=== PATIENT | female | born 1945 | race Caucasian/White ===

== ENCOUNTER 2017-11-02 11:08 | Emergency (ER) | payer MEDICARE, SELFPAY ==
[2017-11-02] VITALS (10 sets, daily range): BP systolic 133–194; BP diastolic 58–116; PULSE 65–94; RESP 12–24; TEMP 36.9; O2SAT 91–98; BMI 32.4
--- NOTE | 2017-11-02 11:17 | CT_ITS ---
STUDY: CT BRAIN WITHOUT CONTRAST REASON FOR EXAM: Female, 72 years old. Solid onset of headaches and dizziness. Hypertension. RADIATION DOSAGE (If Supplied By Facility): CTDIvol = ( 44.99 ) mGy, DLP = ( 779.24 ) mGycm TECHNIQUE: Transaxial CT imaging of the brain was performed without administration of intravenous contrast material. Individualized dose optimization techniques were used for this CT. COMPARISON: None. FINDINGS: Normal soft tissue structures. Normal calvarium. There is mild cerebral atrophy with widening of the extra-axial spaces and ventricular dilatation. There are areas of decreased attenuation within the white matter tracts of the supratentorial brain, consistent with microvascular disease changes. Normal basal ganglia and thalami. Normal brainstem. Normal cerebellum. There is no intracranial hemorrhage. There are no findings of an acute ischemic infarction. Normal visualized paranasal sinuses. CT/Brain/Head without Contrast IMPRESSION: Chronic involutional changes of the brain. Electronically Signed: Minor Christianson MD at 11:44 EST Tel [phone], Service support ,
--- NOTE | 2017-11-02 11:18 | EKG12_ITS ---
Test Reason : REPEAT Blood Pressure : / mmHG Vent. Rate : 070 BPM Atrial Rate : 070 BPM P-R Int : 144 ms QRS Dur : 078 ms QT Int : 428 ms P-R-T Axes : 055 048 043 degrees QTc Int : 462 ms Normal sinus rhythm Normal ECG Confirmed by MICKY BACH, GARRETT ([id number]), technical editor TAMIE CRAMER ([id number]) on 11/04/2017 1:10:49 PM Referred By: SEAN Confirmed By:GARRETT WEEKS MD
--- NOTE | 2017-11-02 11:20 | NURSING ---
NO OLD EKGS
--- NOTE | 2017-11-02 11:22 | ED.VISSUMM ---
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 Patient said this morning she had some dizziness. Room spinning. Denies any problem with her balance. Denies any numbness or tingling. Denies any problem moving her arms and legs. Later this morning she developed a headache at the top of her head. She states is moderate to severe. She is not on any blood thinners other than aspirin. She denies any falls or head trauma. She denies any prior intracranial bleeds. Physical Examination: Older female blood pressure is elevated at 194/116. Otherwise vital signs are stable afebrile. Pulse ox 98% on room air no hypoxia. HEENT exam pupils round reactive to light. Extra motions are intact. Normal speech. She may have a very minor left corner of her mouth droop. Neck nontender. Lungs clear to auscultation bilaterally. Heart regular rhythm no murmur rate in 90s. Abdomen soft and nontender. Neurologically she is moving all 4 extremities. She has bilateral equal and symmetrical 5 out of 5 surveillance supervisor strength. She has bilateral equal symmetrical dorsi plantar flexion. She has normal sensation. She may have a very mild left facial droop. Involving the corner of her mouth. She can open and close her eyes. Her symptoms seem to get worse with movement of her head this may be secondary to vertigo. Test Results: CT of the brain without contrast shows no acute abnormality. Read by the radiologist reviewed by me. No bleed. ABC normal. BMP unremarkable. Glucose of 90. Normal creatinine and gap. PT/INR normal. Troponin normal. EKG sinus rhythm rate 80 with no acute abnormality. Chest x-ray normal cardiac silhouette and mediastinum read both by myself and the radiologist. Emergency Department Course and Treatment: Repeat exam the patient was feeling better initially after IV Ativan because we are out of IV Valium. And then also p.o. Antivert. She did develop chest pain after some morphine for her headache. That may be secondary to reflux. He does not appear to be cardiac. On repeat exam at 1545 she is doing well. Her neurologic exam is normal. Her daughter is a nurse here in emergency department and is comfortable and wants to take her home. They were warned to be very careful with her up and around is the medication she was given and also the vertigo she is a very significant fall risk. Treatment Plan: Antivert for dizziness secondary to vertigo. Call follow-up with primary care physician. Return to the ER if feeling worse. Disposition: Discharge Impression: Acute dizziness secondary to vertigo Acute cephalgia Atypical chest pain This note was generated with [employer] dictation software. It may contain incorrect words, spelling, and punctuation that were not noted in review of the chart prior to signing ED Disposition - Plan for ED Patient: Disposition: Home or Assisted Living Chief Complaint: Neuro S/Sx Instructions: ED Vertigo Unspecified Prescriptions: Meclizine HCl [Antivert] 25 mg PO 4X/DAY PRN PRN #20 tab PRN Reason: Dizziness Referrals: Pipo Goldman [Primary Care Provider] - As soon as possible Additional Instructions: Return to ER feeling worse. Follow up with your doctor to ensure that you are getting better. Your CAT scan, both EKGs, and all your blood work and chest x-ray were all normal. The dizziness seems to be secondary to vertigo. The medication Antivert to be used to treat that.
[2017-11-02 11:29] LABS: Absolute Lymphocyte Count 2.36 X10^3/ul (0.83-4.51); Absolute Neutrophil Count 4.1 X10^3/uL (2.0-7.7); Basophil# 0.02 X10^3/uL; Basophil% 0.3 % (0-1); Eosinophils% 1.4 % (0-5); Hematocrit 44.5 % (37-47); Hemoglobin 15.1 g/dl (12.0-15.0); Lymphocyte # 2.36 X10^3/ul (4.0); Lymphocyte % 33.3 % (19-41); Mean Corp Hgb Conc 33.9 g/gl (32-36); Mean Corpuscular Hgb 29.6 pg (27.0-32.0); Mean Corpuscular Volume 87.3 fL (81-99); Mean Platelet Vol. 8.6 fl (6.2-12.0); Monocyte# 0.55 X10^3/uL; Monocyte% 7.8 % (0-10); Neutrophil # 4.05 X10^3/uL (2.7-7.7); Neutrophil % 57.1 % (47-70); Platelet Count 274 K/mm3 (150-450); RBC Distribution Width CV 12.9 % (11.6-14.6); RBC Distribution Width SD 41.4 fl (35.1-43.9); White Blood Count 7.1 K/mm3 (4.4-11.0)
[2017-11-02 11:30] LABS: POSITIVE COUNT NO; POSITIVE DIFFERENTIAL NO; POSITIVE MORPHOLOGY NO
[2017-11-02 11:36] LABS: Bedside Glucose 92 mg/dL (70-110)
[2017-11-02] MEDS: LORazepam 2 MG/ML Syringe IV (11:36)
[2017-11-02 11:41] LABS: Prothrombin Time (Protime)PT. 12.4 SECONDS (11.7-14.9)
[2017-11-02 11:45] LABS: Anion Gap 8 (5-15); BUN 15 mg/dL (7-18); BUN/Creat Ratio 17.6 RATIO (10-20); Calcium,Total 8.6 mg/dL (8.5-10.1); Chloride 103 mmol/L (98-107); Creatinine, Serum 0.85 mg/dL (0.55-1.02); EST Glomerular Filtration Rate 70 mL/min (>60); Est Glom Filt Rate - Afr Amer 84 mL/min (>60); Estimated Creatinine Clearance 46.62 ml/min; Glucose 90 mg/dL (74-106); Potassium 4.3 mmol/L (3.5-5.1); Sodium Level 139 mmol/L (136-145)
[2017-11-02] MEDS: Ondansetron 4 MG/2 ML Vial IV (12:50)
[2017-11-02] MEDS: Meclizine 12.5 MG Tablet 25 MG PO (13:00)
[2017-11-02] MEDS: Famotidine 20 MG Tablet 40 MG PO (13:36)
--- NOTE | 2017-11-02 13:45 | RAD_ITS ---
STUDY: X-RAY CHEST REASON FOR EXAM: Female, 72 years old. Chest pain. TECHNIQUE: Single AP portable view of the chest. COMPARISON: None. FINDINGS: EKG electrodes are seen. Scattered calcified granulomas. No acute abnormality is seen. There is no demonstrated pleural abnormality. Normal size heart. Normal mediastinum and vazquez. Normal visualized pulmonary arteries. There is atherosclerotic calcification of the aortic arch with tortuosity. There are diffuse degenerative changes of the visualized thoracic spine. Normal visualized ribs, clavicles, and shoulders. There is no demonstrated abnormality of the visualized soft tissue structures of the upper abdomen. RAD/Chest 1 View (Portable) IMPRESSION: No acute abnormality is seen. Electronically Signed: Minor Christianson MD at 14:33 EST Tel [phone], Service support ,
--- NOTE | 2017-11-02 14:36 | EKG12_ITS ---
Test Reason : NEURO S/SX Blood Pressure : / mmHG Vent. Rate : 080 BPM Atrial Rate : 080 BPM P-R Int : 134 ms QRS Dur : 074 ms QT Int : 414 ms P-R-T Axes : 051 048 049 degrees QTc Int : 477 ms Normal sinus rhythm with sinus arrhythmia Normal ECG Confirmed by MICKY BACH, GARRETT ([id number]), city editor TAMIE CRAMER ([id number]) on 11/04/2017 1:11:03 PM Referred By: SEAN Confirmed By:GARRETT WEEKS MD
--- NOTE | 2017-11-02 15:40 | ED.DEP ---
ED Disposition - Plan for ED Patient: Disposition: Home or Assisted Living Chief Complaint: Neuro S/Sx Instructions: ED Vertigo Unspecified Prescriptions: Meclizine HCl [Antivert] 25 mg PO 4X/DAY PRN PRN #20 tab PRN Reason: Dizziness Referrals: Pipo Goldman [Primary Care Provider] - As soon as possible Additional Instructions: Return to ER feeling worse. Follow up with your doctor to ensure that you are getting better. Your CAT scan, both EKGs, and all your blood work and chest x-ray were all normal. The dizziness seems to be secondary to vertigo. The medication Antivert to be used to treat that.
== END 2017-11-02 16:10 | disposition home or self-care (01) ==
PROVIDERS: Emergency Provider Emergency Medicine
DX: R42 Dizziness and giddiness (principal); R51 Headache; R07.89 Other chest pain; Z86.73 Personal history of transient ischemic attack (TIA), and cerebral infarction without residual deficits
CPT/HCPCS: 70450; 71045; 80048; 82962; 84484; 85025; 85610; 93005; 96374; 96375; 96376; 99284; A4216; J2405

== ENCOUNTER 2020-10-29 13:47 | Outpatient (RCR) | payer MEDICARE, SELFPAY ==
[2017-11-02 11:10] VITALS: BMI 32.4
== END 2020-10-29 23:59 ==
LOC: IMMUN 13:47
PROVIDERS: Referring Provider Family Medicine; Visit Provider Family Medicine
DX: Z23 Encounter for immunization (principal)
CPT/HCPCS: 0011A; 0012A; 91301

== ENCOUNTER 2021-08-07 11:33 | Observation (INO) | payer MEDICARE, SELFPAY ==
[2021-08-07] VITALS (8 sets, daily range): BP systolic 132–188; BP diastolic 7–100; PULSE 65–77; RESP 14–20; TEMP 36.6–36.7; O2SAT 98–100; BMI 35.8; BMI 32.5
--- NOTE | 2021-08-07 11:43 | ED.RN ---
PAIN AND SENSITIVITY TO BILAT LEGS ABOE THE KNEES. PT STATES THAT THE BLANKETS ON HER LEGS CAUSE HER PAIN. THERE IS BRUISING TO BOTH LEGS ABOVE THE KNEES.
--- NOTE | 2021-08-07 12:23 | ED.VIS.FALL ---
HPI HPI - Fall History of Present Illness Chief Complaint: Lower Extremity Injury Informant: patient and spouse/S.O. Occured/Mechanism Occurred: Today Mechanism/Context: Yes same level fall and Yes trip Pain/Injury Location: both thighs/knees Current Severity: Moderate Maximum Severity: Severe Worsened by: any movement Relieved by: remaining still Associated Symptoms Associated Symptoms: Positive for Loss of function and Inability to ambulate; Negative for Parasthesias and Weakness Narrative Narrative: Patient states she was moving garbage can outside to rake leaves behind it, and in doing so she tripped and fell into the garbage can, injuring both of her thighs, unable to stand or walk subsequently. She denies any other injury. No numbness. No prodromal symptoms, she tripped. Takes aspirin but not anticoagulated. She denies hitting her head or having any pain in her neck or back. [facility] Medical History Stroke/cerebrovascular accident Home Medications aspirin 243 mg PO DAILY@0800 11/02/17 [History Last Taken 11/01/17] Allergy/AdvReac Type Severity Reaction Status Date / Time No Known Allergies Allergy Verified 08/07/21 11:36 Social History Smoking Status: Former smoker ROS ROS ED Constitutional Constitutional ED: Denies chills or fever(s) Eyes Eyes: Denies change in vision or diplopia ENT ENT ED: Denies rhinorrhea or sore throat Cardiovascular Cardiovascular: Denies chest pain or palpitations Respiratory/Chest Respiratory/Chest: Denies cough or dyspnea Gastrointestinal Gastrointestinal: Denies abdominal pain, diarrhea, nausea or vomiting Genitourinary Genitourinary ED: Denies dysuria or hematuria Musculoskeletal Musculoskeletal: Reports extremity pain; Denies back pain or neck pain Integumentary Denies abscess or rash Neurologic Neurologic: Denies headache(s), paresthesias or weakness Psychiatric Psychiatric: Denies anxiety or suicidal thoughts EXAM Physical Exam Const Vital Signs: 08/07/21 11:36 08/07/21 13:44 Temperature 98.1 F Temperature Source Temporal Pulse Rate 77 65 Respiratory Rate 14 20 H Blood Pressure 188/7 H 156/53 H Blood Pressure Mean 67 87 Pulse Ox 99 99 Oxygen Delivery Method Room Air Room Air Positive well nourished and well developed General Appearance ED: well developed and NAD HEENT Reports moist mucous membranes normocephalic and atraumatic Eyes PERRL and EOMs intact bilaterally Neck full ROM and supple Resp normal respiratory effort and clear to auscultation bilaterally Cardio regular rate, regular rhythm and peripheral pulses 2+ throughout GI non-tender and non-distended Auscultation: normoactive bowel sounds Palpation: soft Back/Spine no CVA tenderness General Back: other FROM Extremity normal to inspection Extremity Narrative: Extremely tender distal left femur, both thighs, and extremely limited range of motion both lower extremities due to extreme pain in both thighs with ranging any joint except for the ankle or toes which she is able to do okay. No deformities. Ecchymoses to both medial thighs around the mid-distal thirds. Skin intact. General Extremety ED: Yes tenderness; Negative for edema or pulses abnormal General Extremity: Negative for edema or pulses abnormal Neuro oriented x3, CN's II-XII intact bilaterally and no sensory deficits noted Sensorium / Orientation: awake and alert Motor Exam: strength 5/5 throughout Skin no rashes or lesions noted and no wounds Skin Narrative: Mild ecchymosis both medial thighs, skin intact. MDM MDM MDM Narrative Medical decision making narrative: Pelvis stable to AP compression patient does not complain of groin or hip pain, but since exam is very limited of the lower extremities other than as noted above, patient was given morphine first followed by radiography of both femurs and the pelvis. All of these x-rays are unremarkable showing no signs of an acute fracture. I am less suspicious about the hips based on where she is having all of her pain and tenderness. Therefore after analgesics and the patient being more comfortable, we sat her up and were able to get her to the side of the bed with a significant amount of assistance, she was not able to stand, bear weight, or even get close to trying to walk due to pain. She has a hematoma on her left anterolateral thigh that is causing her the most pain and is very tender. Very limited range of motion of the left knee and hip due to this but with gentle internal/external rotation, she does not have any groin/hip joint pain. The right lower extremity is more benign, less tender, she has better range of motion but still limited there, the knee and the hip do not hurt with ranging those just increases pain in the thigh. As long she is remaining still, she is comfortable. I do not think she is going to be safe to be discharged home, since we can even get her on her feet. Will discuss with hospitalist for inpatient observation and PT/OT evaluations. After discussion also added a CPK level to her basic labs. Of note, it has been 4 hours since patient has had any narcotic pain medication, but when she falls asleep she desats to 86% on room air so we placed her on 2 L of oxygen. When awake, she is keenly alert, and discusses the fact that she snores at night and I suspect she may have undiagnosed sleep apnea. Lab Data Attestation: I reviewed the patient's lab results. Labs: Laboratory Results - last 24 hr 08/07/21 08/07/21 15:30 15:30 WBC 11.3 H RBC 4.86 Hgb 14.2 Hct 42.0 MCV 86.4 MCH 29.2 MCHC 33.8 RDW Std Deviation 40.0 RDW Coeff of Brigid 12.8 Plt Count 282 MPV 8.4 Immature Gran % (Auto) 0.400 Neut % (Auto) 81.3 H Lymph % (Auto) 10.0 L [place] % (Auto) 7.6 Eos % (Auto) 0.3 Baso % (Auto) 0.4 Absolute Neuts (auto) 9.2 H Absolute Lymphs (auto) 1.13 Nucleated RBC % 0 Sodium 140 Potassium 3.8 Chloride 108 H Carbon Dioxide 26.0 Anion Gap 6 BUN 15 Creatinine 0.84 Estim Creat Clear Calc 44.36 Est GFR (MDRD) Af Amer 85 Est GFR (MDRD) Non-Af 70 BUN/Creatinine Ratio 17.9 Glucose 91 Calcium 8.9 Radiography Diagnostic Testing: Clinical Impression(s) from Imaging Studies Femur X-Ray 08/07/21 13:06 IMPRESSION: Osteopenia with osteoarthritic changes. No acute finding. Electronically Signed: Broderick Bermudez MD at 13:34 EST , Service support , Pelvis X-Ray 08/07/21 13:06 IMPRESSION: Osteopenia with osteoarthritic changes as described. No acute finding. Electronically Signed: Broderick Bermudez MD at 13:35 EST , Service support , Femur X-Ray 08/07/21 13:20 IMPRESSION: Osteopenia with osteoarthritic changes. No acute osseous abnormality. Electronically Signed: Broderick Bermudez MD at 13:37 EST , Service support , Discharge Plan Dx/Rx/DC Orders Clinical Impression: Contusion of left thigh, Contusion of right thigh, Fall from slip, trip, or stumble, Inability to walk Disposition Disposition: Acute Care [facility]
[2021-08-07] MEDS: Ondansetron 4 MG/2 ML Vial IV ×2 (12:31→18:33)
[2021-08-07] MEDS: Morphine 4 MG/ML Syringe IV ×3 (12:31→18:33)
--- NOTE | 2021-08-07 13:06 | RAD_ITS ---
STUDY: X-RAY - RIGHT FEMUR REASON FOR STUDY: Female, 76 years old. Injury. Pain. TECHNIQUE: 4 view(s) of the femur. COMPARISON: None. FINDINGS: Osteopenia. Moderate arthrosis of the left hip. Mild tricompartmental arthrosis of the knee. Small superior patellar spur. Normal soft tissues. RAD/Femur Min 2 Views IMPRESSION: Osteopenia with osteoarthritic changes. No acute finding. Electronically Signed: Broderick Bermudez MD at 13:34 EST , Service support ,
--- NOTE | 2021-08-07 13:06 | RAD_ITS ---
STUDY: X-RAY - PELVIS REASON FOR EXAM: Female, 76 years old. Injury. Pain. TECHNIQUE: One view of the pelvis was obtained. COMPARISON: None. FINDINGS: There is a non-specific bowel gas pattern. Normal visualized soft tissue structures. Osteopenia. Mild arthrosis of both sacroiliac joints and the symphysis pubis. Moderate arthrosis of both hips, right greater than left. RAD/Pelvis 1 or 2 Views IMPRESSION: Osteopenia with osteoarthritic changes as described. No acute finding. Electronically Signed: Broderick Bermudez MD at 13:35 EST , Service support ,
--- NOTE | 2021-08-07 13:20 | RAD_ITS ---
STUDY: X-RAY - LEFT FEMUR REASON FOR STUDY: Female, 76 years old. Injury. Pain. TECHNIQUE: 4 view(s) of the femur. COMPARISON: None. FINDINGS: Osteopenia. Moderate arthrosis of the right hip and mild tricompartmental arthrosis of the knee. Small superior patellar spur. Normal soft tissues. RAD/Femur Min 2 Views IMPRESSION: Osteopenia with osteoarthritic changes. No acute osseous abnormality. Electronically Signed: Broderick Bermudez MD at 13:37 EST , Service support ,
--- NOTE | 2021-08-07 13:45 | ED.RN ---
PT UNABLE TO VOID. PER PT REQUEST PT CATHED FOR 850 CC OF URINE. PT TOLERATED WELL
--- NOTE | 2021-08-07 14:23 | ED.RN ---
PT ROOM AIR PULSE OX IS 79 % WITH A GOOD WAVE FORM. PT SLEEPING. PT WOKEN UP AND ENCOURAGED TO BREATH DEEP. PT PLACED ON OXYGEN AT 3 LITERS.. 96 %
[2021-08-07 15:49] LABS: Absolute Lymphocyte Count 1.13 X10^3/uL (0.83-4.51); Absolute Neutrophil Count 9.2 X10^3/uL (2.0-7.7); Basophil# 0.04 X10^3/uL; Basophil% 0.4 % (0-1); Eosinophil# 0.03 X10^3/uL; Eosinophils% 0.3 % (0-5); Hemoglobin 14.2 g/dL (12.0-15.0); Lymphocyte # 1.13 X10^3/ul (0.83-4.51); Mean Corp Hgb Conc 33.8 g/dL (32-36); Mean Corpuscular Hgb 29.2 pg (27.0-32.0); Mean Corpuscular Volume 86.4 fL (81-99); Mean Platelet Vol. 8.4 fl (6.2-12.0); Monocyte# 0.86 X10^3/uL; Monocyte% 7.6 % (0-10); NRBC Flagged by Analyzer 0 % (0-5); Neutrophil % 81.3 % (47-70); Platelet Count 282 K/mm3 (150-450); RBC Distribution Width CV 12.8 % (11.6-14.6); Red Blood Count 4.86 M/mm3 (4.2-5.4); White Blood Count 11.3 K/mm3 (4.4-11.0)
[2021-08-07 16:03] LABS: Anion Gap 6 (5-15); BUN 15 mg/dL (7-18); BUN/Creat Ratio 17.9 RATIO (10-20); Calcium,Total 8.9 mg/dL (8.5-10.1); Chloride 108 mmol/L (98-107); Creatinine, Serum 0.84 mg/dL (0.55-1.02); EST Glomerular Filtration Rate 70 mL/min (>60); Est Glom Filt Rate - Afr Amer 85 mL/min (>60); Estimated Creatinine Clearance 44.36 ml/min; Glucose 91 mg/dL (74-106); Potassium 3.8 mmol/L (3.5-5.1); Sodium Level 140 mmol/L (136-145)
--- NOTE | 2021-08-07 16:12 | ED.RN ---
PT FALLS ASLEEP. PULSE OX AGAIN NOTED TO DECLINE. PT SATURATION AT 87 WITH A GOOD WAVE FORM. PT PLACED BACK ON O2 AT 3 LITERS. PULSE OX INCREASING
--- NOTE | 2021-08-07 16:36 | PCM.HP.STD ---
Documented by User: CHRISTOPHER Mills 08/07/21 16:50 HPI - General General Date of Admission: 08/07/21 Date of Service: 08/07/21 Chief Complaint: Fall, left leg pain HPI Narrative CHRISSIE CARTER, is a 76 F who presents with complaints of left leg pain following a fall. Patient states that she was raking leaves and tripped and fell into the garbage can. Patient states that her left leg is much more painful than the right. Patient states that she tripped, denied dizziness, lightheadedness patient's only medical history is history of a stroke approximately 14 years ago for which she has no lingering deficits. Patient reports that she takes aspirin daily but otherwise is on no medications. [facility] Medical History (Updated 08/07/21 @ 16:47 by CHRISTOPHER Mills) Stroke/cerebrovascular accident Home Medications aspirin 243 mg PO DAILY@0800 11/02/17 [History Last Taken 11/01/17] Allergy/AdvReac Type Severity Reaction Status Date / Time No Known Allergies Allergy Verified 08/07/21 11:36 Family History (Updated 08/07/21 @ 17:[address] Poppy Corona MD) Mother Cancer Mother w/ Lymphoma history. Surgical History (Updated 08/07/21 @ 16:39 by CHRISTOPHER Mills) History of back surgery History of cholecystectomy History of tonsillectomy Social History (Updated 08/07/21 @ 17:[address] Poppy Corona MD) household members: spouse Smoking Status: Former smoker how long ago did patient quit smokin years alcohol intake: current alcohol intake frequency: a few times a month Alcohol type: beer substance use type: does not use ROS Constitutional Constitutional: Denies anorexia, chills, fatigue, fever(s), malaise or weakness Cardiovascular Cardiovascular: Denies chest pain, edema, palpitations or syncope Respiratory/Chest Respiratory/Chest: Denies cough, shortness of breath at rest, shortness of breath with exertion or wheezing Gastrointestinal Gastrointestinal: Denies abdominal pain, constipation, diarrhea, nausea or vomiting Genitourinary Genitourinary: Denies dysuria Musculoskeletal Musculoskeletal: Reports difficulty walking and extremity pain; Denies back pain, joint pain, joint stiffness or joint swelling Integumentary Integumentary: Denies dry skin Neurologic Neurologic: Denies abnormal gait, abnormal speech, confusion or dizziness Psychiatric Psychiatric: Denies anxiety or depression Endocrine Endocrinology: Denies change in body appearance Hematologic/Lymphatic Hematologic/Lymphatic: Denies anemia or easy bleeding Vital Signs Vital Signs Vital Signs: 08/07/21 11:36 08/07/21 13:44 Temperature 98.1 F Temperature Source Temporal Pulse Rate 77 65 Respiratory Rate 14 20 H Blood Pressure 188/7 H 156/53 H Blood Pressure Mean 67 87 Pulse Ox 99 99 Oxygen Delivery Method Room Air Room Air Weight Weight: 195 lb 15.855 oz Body Mass Index (BMI) 35.8 Physical Exam Const alert, oriented x3 and no apparent distress General Appearance: cooperative HEENT normocephalic and head/scalp atraumatic Eyes conjunctivae normal and no scleral icterus Neck no lymphadenopathy and supple General: trachea midline Resp normal respiratory effort, normal air movement and clear to auscultation bilaterally Cardio regular rate, regular rhythm, S1 normal heart sound, S2 normal heart sound and peripheral pulses 2+ throughout GI normal to inspection, nondistended, normoactive bowel sounds, soft to palpation and non-tender Extremity normal capillary refill Peripheral Pulses: Yes pulses 2+ throughout Right Lower Extremity: upper leg Positive for inspection (Ecchymotic through the mid thigh from anterior thigh extending in to posterior lateral thigh with noted abrasion to mid thigh), palpation (Tender from just above the knee joint up to the hip) and neurovascular exam (Intact) Skin General Skin Exam: turgor normal and ecchymosis Lesions: no lesions Rashes: no rashes Trauma: abrasion Neuro oriented x3, no focal motor deficits and no sensory deficits noted Neuro Narrative: Difficulty ambulating due to left leg pain Motor Exam: general weakness Psych thought process normal, cooperative and affect normal Appearance: appropriate Results Lab / Micro Data Result Diagrams: 08/07/21 15:30 08/07/21 15:30 Labs: Laboratory Results - last 24 hr 08/07/21 15:30: WBC 11.3 H, RBC 4.86, Hgb 14.2, Hct 42.0, MCV 86.4, MCH 29.2, MCHC 33.8, RDW Std Deviation 40.0, RDW Coeff of Brigid 12.8, Plt Count 282, MPV 8.4, Immature Gran % (Auto) 0.400, Neut % (Auto) 81.3 H, Lymph % (Auto) 10.0 L, [place] % (Auto) 7.6, Eos % (Auto) 0.3, Baso % (Auto) 0.4, Absolute Neuts (auto) 9.2 H, Absolute Lymphs (auto) 1.13, Nucleated RBC % 0 08/07/21 15:30: Sodium 140, Potassium 3.8, Chloride 108 H, Carbon Dioxide 26.0, Anion Gap 6, BUN 15, Creatinine 0.84, Estim Creat Clear Calc 44.36, Est GFR (MDRD) Af Amer 85, Est GFR (MDRD) Non-Af 70, BUN/Creatinine Ratio 17.9, Glucose 91, Calcium 8.9 Radiology Impression Femur X-Ray 08/07/21 13:06 IMPRESSION: Osteopenia with osteoarthritic changes. No acute finding. Electronically Signed: Broderick Bermudez MD at 13:34 EST , Service support , Pelvis X-Ray 08/07/21 13:06 IMPRESSION: Osteopenia with osteoarthritic changes as described. No acute finding. Electronically Signed: Broderick Bermudez MD at 13:35 EST , Service support , Femur X-Ray 08/07/21 13:20 IMPRESSION: Osteopenia with osteoarthritic changes. No acute osseous abnormality. Electronically Signed: Broderick Bermudez MD at 13:37 EST , Service support , Assessment & Plan Assessment/Plan (1) Fall from slip, trip, or stumble: QUALIFIERS: Encounter type: initial encounter Qualified Code(s): W01.0XXA - Fall on same level from slipping, tripping and stumbling without subsequent striking against object, initial encounter (2) Contusion of left thigh: QUALIFIERS: Encounter type: initial encounter Qualified Code(s): S70.12XA - Contusion of left thigh, initial encounter (3) Inability to walk: PLAN: 1.Contusion of left thigh secondary to fall -Admit to [facility] -PT and OT consulted -Apply ice to area 20 minutes on 20 minutes off -CPK pending -CBC and BMP ordered for a.m. -No acute fracture to femur or hip and pelvis x-ray -Pain medication regimen ordered, patient received IV morphine in ER 2. Inability to walk -Secondary to #1 3. History of CVA -Continue aspirin DVT prophylaxis-not indicated, observation status This patient was seen by CHRISTOPHER Mills under the supervision of Dr. Corona. Documented by User: Dr. Poppy Corona MD 08/07/21 17:20 HPI - General General Date of Admission: 08/07/21 [facility] Medical History (Updated 08/07/21 @ 16:47 by CHRISTOPHER Mills) Stroke/cerebrovascular accident Home Medications aspirin 243 mg PO DAILY@0800 11/02/17 [History Last Taken 11/01/17] Allergy/AdvReac Type Severity Reaction Status Date / Time No Known Allergies Allergy Verified 08/07/21 11:36 Family History (Updated 08/07/21 @ 17:[address] Poppy Corona MD) Mother Cancer Mother w/ Lymphoma history. other (Denies any marked paternal family history including HD, DM, CA.) Surgical History (Updated 08/07/21 @ 16:39 by CHRISTOPHER Mills) History of back surgery History of cholecystectomy History of tonsillectomy Social History (Updated 08/07/21 @ 17:[address] Poppy Corona MD) household members: spouse Smoking Status: Former smoker how long ago did patient quit smokin years alcohol intake: current alcohol intake frequency: a few times a month Alcohol type: beer substance use type: does not use Results Lab / Micro Data Result Diagrams: 08/07/21 15:30 08/07/21 15:30
[2021-08-07 18:47] LABS: CPK Total, Creatine Kinase 140 U/L (26-192)
--- NOTE | 2021-08-07 19:07 | PCS.PANDOC ---
PANDEMIC DOCUMENTATION INITIATED: Date: 04/27/2021 Time: 190
[2021-08-08] MEDS: Acetaminophen 325 MG Tablet 650 MG PO ×2 (00:51→07:22)
[2021-08-08 02:07] VITALS: BP 125/72; PULSE 67; RESP 18; TEMP 36.8; O2SAT 98
[2021-08-08] MEDS: oxyCODONE 5 MG Tablet PO (06:12)
--- NOTE | 2021-08-08 06:17 | PCM.PN.HOSP ---
Objective Data Objective Data Vital Signs: Vital Signs Temp Pulse Resp BP Pulse Ox 98.2 F 67 18 125/72 H 98 08/08/21 02:07 08/08/21 02:07 08/08/21 02:07 08/08/21 02:07 08/08/21 02:07 Oxygen Flow Rate (L/min) 2 Oxygen Delivery Method Room Air Weight: 176 lb 9.444 oz Body Mass Index (BMI) 32.5 Intake & Output: Intake and Output for Last 24 Hours 08/06/21 08/07/21 08/08/21 23:59 23:59 23:59 Intake Total 500 / 500 Output Total 700 / 700 Balance -200 / -200 Lab / Micro Data Result Diagrams: 08/07/21 15:30 08/07/21 15:30 Labs: Laboratory Results - last 24 hr 08/07/21 15:30: WBC 11.3 H, RBC 4.86, Hgb 14.2, Hct 42.0, MCV 86.4, MCH 29.2, MCHC 33.8, RDW Std Deviation 40.0, RDW Coeff of Brigid 12.8, Plt Count 282, MPV 8.4, Immature Gran % (Auto) 0.400, Neut % (Auto) 81.3 H, Lymph % (Auto) 10.0 L, [place] % (Auto) 7.6, Eos % (Auto) 0.3, Baso % (Auto) 0.4, Absolute Neuts (auto) 9.2 H, Absolute Lymphs (auto) 1.13, Nucleated RBC % 0 08/07/21 15:30: Sodium 140, Potassium 3.8, Chloride 108 H, Carbon Dioxide 26.0, Anion Gap 6, BUN 15, Creatinine 0.84, Estim Creat Clear Calc 44.36, Est GFR (MDRD) Af Amer 85, Est GFR (MDRD) Non-Af 70, BUN/Creatinine Ratio 17.9, Glucose 91, Calcium 8.9 08/07/21 15:30: Total Creatine Kinase 140 Radiography Diagnostic Testing: Radiology Impression Femur X-Ray 08/07/21 13:06 IMPRESSION: Osteopenia with osteoarthritic changes. No acute finding. Electronically Signed: Broderick Bermudez MD at 13:34 EST , Service support , Pelvis X-Ray 08/07/21 13:06 IMPRESSION: Osteopenia with osteoarthritic changes as described. No acute finding. Electronically Signed: Broderick Bermudez MD at 13:35 EST , Service support , Femur X-Ray 08/07/21 13:20 IMPRESSION: Osteopenia with osteoarthritic changes. No acute osseous abnormality. Electronically Signed: Broderick Bermudez MD at 13:37 EST , Service support ,
[2021-08-08 07:33] LABS: Absolute Lymphocyte Count 1.38 X10^3/uL (0.83-4.51); Absolute Neutrophil Count 3.7 X10^3/uL (2.0-7.7); Basophil# 0.03 X10^3/uL; Basophil% 0.5 % (0-1); Eosinophil# 0.11 X10^3/uL; Eosinophils% 1.9 % (0-5); Hematocrit 38.3 % (37-47); Hemoglobin 12.8 g/dL (12.0-15.0); Lymphocyte # 1.38 X10^3/ul (0.83-4.51); Lymphocyte % 23.8 % (19-41); Mean Corp Hgb Conc 33.4 g/dL (32-36); Mean Corpuscular Hgb 29.5 pg (27.0-32.0); Mean Corpuscular Volume 88.2 fL (81-99); Mean Platelet Vol. 8.6 fl (6.2-12.0); Monocyte# 0.59 X10^3/uL; Monocyte% 10.2 % (0-10); NRBC Flagged by Analyzer 0 % (0-5); Neutrophil # 3.67 X10^3/uL (2.7-7.7); Neutrophil % 63.1 % (47-70); Platelet Count 268 K/mm3 (150-450); RBC Distribution Width CV 12.9 % (11.6-14.6); RBC Distribution Width SD 41.9 fl (35.1-43.9); Red Blood Count 4.34 M/mm3 (4.2-5.4); White Blood Count 5.8 K/mm3 (4.4-11.0)
[2021-08-08] MEDS: Aspirin 81 MG TAB.CHEW PO (07:44)
[2021-08-08 07:50] VITALS: BP 123/53; PULSE 64; RESP 16; TEMP 36.6; O2SAT 98
[2021-08-08 07:58] VITALS: O2SAT 96
[2021-08-08 08:16] LABS: Anion Gap 5 (5-15); BUN 13 mg/dL (7-18); BUN/Creat Ratio 14.9 RATIO (10-20); CPK Total, Creatine Kinase 145 U/L (26-192); Calcium,Total 8.3 mg/dL (8.5-10.1); Chloride 110 mmol/L (98-107); Creatinine, Serum 0.87 mg/dL (0.55-1.02); EST Glomerular Filtration Rate 67 mL/min (>60); Est Glom Filt Rate - Afr Amer 81 mL/min (>60); Estimated Creatinine Clearance 40.86 ml/min; Glucose 86 mg/dL (74-106); Potassium 3.8 mmol/L (3.5-5.1); Sodium Level 140 mmol/L (136-145)
[2021-08-08 09:33] VITALS: BP 112/74; BP 112/75; BP 124/76; PULSE 61; PULSE 63; PULSE 91
[2021-08-08 11:35] VITALS: BP 135/65; PULSE 59; RESP 16; TEMP 36.6; O2SAT 99
--- NOTE | 2021-08-08 13:37 | PCM.DC ---
Discharge Instructions Diet Discharge Diet: No restrictions Activity Discharge Activity: Return to Normal Activity and - (Avoid aggressive activities or those that would post a recurrent fall risk until improved.) Dressing / Incision Call your doctor if you observe: Uncontrolled pain Follow Up Care Test Results: Test results from this visit will be discussed in further detail at your follow-up appointment, if applicable. Discharge Plan Admission Admit Date/Time: 08/07/21 16:32 Primary Reason for Your Visit: Acute BL thigh contusion, L thigh hematoma s/p injury Attending Provider: Amna Coleman Primary Care Provider: Emma Ordonez Primary Instructions Additional Instructions / Restrictions: Currently you are taking aspirin 243 mg p.o. daily. We do recommend you consider transition to 81 mg daily only as this elevated dose may cause deleterious side effects including GI bleeding. Upon initial ED presentation your blood pressure was elevated however this normalized and was likely secondary to pain. Please follow-up with your primary care physician to assure that blood pressures remain appropriate and no medications are necessitated. Discharge Orders/Prescriptions Prescriptions: Continued aspirin 81 MG tablet,chewable 243 mg PO DAILY@0800 RF: 0 Referrals / Follow Up: Care Physician,Emma Primary [Primary Care Provider] - Disposition Disposition (needs filled in before D/C Order can be placed): Home, Self Care
--- NOTE | 2021-08-08 13:38 | DS.PCM_ITS ---
Providers Date of Admission: 08/07/21 Primary Care Physician: No Primary Care Phys Reason For Visit: LEFT LEG PAIN Diagnosis Discharge Diagnosis (1) Fall from slip, trip, or stumble: Status: Acute Code(s): W01.0XXA - Fall on same level from slipping, tripping and stumbling without subsequent striking against object, initial encounter Qualifiers: Encounter type: initial encounter Qualified Code(s): W01.0XXA - Fall on same level from slipping, tripping and stumbling without subsequent striking against object, initial encounter (2) Contusion of left thigh: Status: Acute Code(s): S70.12XA - Contusion of left thigh, initial encounter Qualifiers: Encounter type: initial encounter Qualified Code(s): S70.12XA - Contusion of left thigh, initial encounter (3) Inability to walk: Status: Acute Code(s): R26.2 - Difficulty in walking, not elsewhere classified Medications at Discharge Home Medications aspirin 243 mg PO DAILY@0800 11/02/17 Hospital Course Operations None Procedures None Summary of Care Provided Minutes Spent on Discharge: 35 Hospital Course: Discharge Diagnoses: 1. Mechanical fall with bilateral thigh ecchymoses/contusions and left thigh hematoma with intractable pain 2. Hx CVA: We will continue aspirin therapy although will de-escalate to 81 mg daily. Patient is not on hypertensive regimen nor statin therapy. 3. Elevated BP without hypertensive diagnosis, improved following pain control, normalized 4. Obesity 5. CODE STATUS: DNR CCA, no intubation per patient's specific request. Discharge Summary: The patient is a 76 y/o F w/ PMHx: Hx CVA who presented to the [facility] ED on 08/07/21 w/ history of unfortunate mechanical fall while she was raking the yard, falling into the garbage which caught on her bilateral thigh, left greater than right with significant discomfort following and even difficulty walking. Patient had immediate bruising to the region and some swelling with hematoma on the left leg and a very focal injury pattern consistent with hitting against the garbage. Creatinine kinase was checked and was normal. Labs in the ED were not marked appearing. Given intractable pain patient was temporally admitted to medical surgical floor, maintain on fall precautions, icing was administered, patient did not necessitate any marked pain medication and following repeat evaluation by therapies on 08/08/2021 si gnificantly improved through the day with ability to ambulate move better room as well as to the restroom without issue. Discussed discharge plan with patient and she was amenable. Did discuss also patient status with family. Encourage patient to follow-up with primary care and establish. Discharge Time: > 35 Minutes DAY OF DISCHARGE PROGRESS NOTE: Subjective: Patient without acute event overnight per self and nursing report. Patient did have mild dizziness upon work this a.m. with physical and Occupational Therapy however she did have one pain medication and attributed to this as it resolved later in the day. She notes bilateral leg discomfort is steadily improving and she is able to walk with less discomfort. Patient denies fever, chills, nausea, emesis, abdominal pain, chest pain or dyspnea. Patient agreeable to discharge to home. Patient will be discharged with recommendation follow-up with primary care/establish. Objective: T 97.9, heart rate 59, BP 135/65, respiratory rate 16, 99% on room air Physical Examination: General: awake, alert, oriented x 3 and cooperative, seated upright in the bed, NAD. Later evaluation with patient actively moving the room with greater ease. Skin: normal color, normal turgor, no icterus, no cyanosis except bilateral thigh upper contusions, mild ecchymoses noted, small left lateral thigh hematoma similar in appearance, no longer warm to touch, less tender to palpation bilateral lower extremities. HEENT: AT/NC, EOMI, PERRLA, MMM. Lungs: CTA bilaterally, moderate effort, mild decrease BL bases, no rales, ronchi or wheezing; Heart: Mildly bradycardic with regular rhythm; no gallop, rub audible. Abdomen: soft, obese, NTTP, ND, normal BS. Extremities: no cyanosis, no clubbing, see skin, no markedly significant swelling of the lower extremities. Neurological: patient awake, alert, oriented x 3; cognitive function appears intact upon questioning,; pupils equally reactive to light and accomodation; cranial nerves II-XII grossly normal, moving all 4 extremities, strength improving, mildly globally decreased but able to now walk about the room without assist. Psychiatric: affect appears improved, normal, no acute evidence of depressive or anxiety feelings. Assessment and Plan: Please see hospital summary above. Weight / BMI Weight Weight: 176 lb 9.444 oz Body Mass Index (BMI) 32.5 ABG / Lab / Microbiology Data Result Diagrams: 08/08/21 06:30 08/08/21 06:30 Laboratory: Laboratory Results - last 24 hr 08/07/21 15:30: WBC 11.3 H, RBC 4.86, Hgb 14.2, Hct 42.0, MCV 86.4, MCH 29.2, MCHC 33.8, RDW Std Deviation 40.0, RDW Coeff of Brigid 12.8, Plt Count 282, MPV 8.4, Immature Gran % (Auto) 0.400, Neut % (Auto) 81.3 H, Lymph % (Auto) 10.0 L, [place] % (Auto) 7.6, Eos % (Auto) 0.3, Baso % (Auto) 0.4, Absolute Neuts (auto) 9.2 H, Absolute Lymphs (auto) 1.13, Nucleated RBC % 0 08/07/21 15:30: Sodium 140, Potassium 3.8, Chloride 108 H, Carbon Dioxide 26.0, Anion Gap 6, BUN 15, Creatinine 0.84, Estim Creat Clear Calc 44.36, Est GFR (MDRD) Af Amer 85, Est GFR (MDRD) Non-Af 70, BUN/Creatinine Ratio 17.9, Glucose 91, Calcium 8.9 08/07/21 15:30: Total Creatine Kinase 140 08/08/21 06:30: Sodium 140, Potassium 3.8, Chloride 110 H, Carbon Dioxide 25.0, Anion Gap 5, BUN 13, Creatinine 0.87, Estim Creat Clear Calc 40.86, Est GFR ( MDRD) Af Amer 81, Est GFR (MDRD) Non-Af 67, BUN/Creatinine Ratio 14.9, Glucose 86, Calcium 8.3 L, Total Creatine Kinase 145 08/08/21 06:30: WBC 5.8, RBC 4.34, Hgb 12.8, Hct 38.3, MCV 88.2, MCH 29.5, MCHC 33.4, RDW Std Deviation 41.9, RDW Coeff of Brigid 12.9, Plt Count 268, MPV 8.6, Immature Gran % (Auto) 0.500, Neut % (Auto) 63.1, Lymph % (Auto) 23.8, [place] % (Auto) 10.2 H, Eos % (Auto) 1.9, Baso % (Auto) 0.5, Absolute Neuts (auto) 3.7, Absolute Lymphs (auto) 1.38, Nucleated RBC % 0 Radiography Diagnostic Testing: Radiology Impression Femur X-Ray 08/07/21 13:20 IMPRESSION: Osteopenia with osteoarthritic changes. No acute osseous abnormality. Electronically Signed: Broderick Bermudez MD at 13:37 EST , Service support , D/C Instructions Discharge Diet: No restrictions Call your doctor if you observe: Uncontrolled pain Meaningful Use Info Meaningful Use Diagnoses (Choose all that apply): None applicable Discharge Plan Admission Admit Date/Time: 08/07/21 16:32 Primary Reason for Your Visit: Acute BL thigh contusion, L thigh hematoma s/p injury Attending Provider: Amna Coleman Primary Care Provider: Care Physician,No Primary Instructions Additional Instructions / Restrictions: Currently you are taking aspirin 243 mg p.o. daily. We do recommend you consider transition to 81 mg daily only as this elevated dose may cause deleterious side effects including GI bleeding. Upon initial ED presentation your blood pressure was elevated however this normalized and was likely secondary to pain. Please follow-up with your primary care physician to assure that blood pressures remain appropriate and no medications are necessitated. Discharge Orders/Prescriptions Prescriptions: Continued aspirin 81 MG tablet,chewable 243 mg PO DAILY@0800 RF: 0 Referrals / Follow Up: Care Physician,No Primary [Primary Care Provider] - Disposition Disposition (needs filled in before D/C Order can be placed): Home, Self Care Charges/Coding Visit Charges OBSV E&M: 50700 Observation care discharge
== END 2021-08-08 14:55 | disposition home or self-care (01) ==
LOC: ED 16:15 → MS3 17:10
PROVIDERS: Family Medicine; Admitting Provider Nurse Practitioner Family; Emergency Provider Emergency Medicine; Visit Provider Nurse Practitioner Family
DX: S70.12XA Contusion of left thigh, initial encounter (principal); S70.11XA Contusion of right thigh, initial encounter; E66.9 Obesity, unspecified; R03.0 Elevated blood-pressure reading, without diagnosis of hypertension; W01.0XXA Fall on same level from slipping, tripping and stumbling without subsequent striking against object, initial encounter; Y93.73 Activity, racquet and hand sports; Y92.096 Garden or yard of other non-institutional residence as the place of occurrence of the external cause; Y99.9 Unspecified external cause status; Z79.82 Long term (current) use of aspirin; Z86.73 Personal history of transient ischemic attack (TIA), and cerebral infarction without residual deficits; Z87.891 Personal history of nicotine dependence; Z68.32 Body mass index [BMI] 32.0-32.9, adult
CPT/HCPCS: 36415; 72170; 73552; 80048; 82550; 85025; 96374; 96375; 96376; 97162; 97165; 99218; 99251; 99285; A4216; G0378; G0463; J2405